=== PATIENT | female | born 1990 | race Caucasian/White ===

== ENCOUNTER 2021-05-06 03:52 | Day surgery (SDC) | payer OTHER, SELFPAY ==
[2021-05-04 15:08] VITALS: BMI 39.6
[2021-05-06] VITALS (11 sets, daily range): BP systolic 109–140; BP diastolic 56–79; PULSE 53–80; RESP 14–16; TEMP 36.4–36.7; O2SAT 96–100
[2021-05-06] MEDS: ACETAMINOPHEN 500 MG TABLET 1000 MG PO (07:00)
--- NOTE | 2021-05-06 07:00 | P.PNAN_ITS ---
Anes - Initial Pre Proc Eval Procedure: Operation Date: 05/06/21 07:30 Proposed Procedures p Diagnostic Laparoscopy, Laparoscopic Right Ovarian Cystectomy, Laparoscopic Hydrotubation of Fallopian Tubes - Conner Corrigan MD Date/Time: 05/06/21 07:00 Surgeon: Conner Corrigan MD Pre Op Diagnosis: endometriosis of pelvis, pelvic pain Patient Data Age: 31 Gender: F Height: 1.73 m Weight: 118.18 kg Allergies Allergy/AdvReac Type Severity Reaction Status Date / Time No Known Allergies Allergy Unverified 05/06/21 06:25 Home Medications Medication Instructions Recorded Confirmed Type multivitamin 1 cap PO DAILY 05/04/21 05/06/21 History Patient hx anesthesia problems: none Family hx anesthesia problems: none [facility] Past Medical History Medical History (Updated 05/06/21 @ 07:00 by Jace Matamoros MD) H/O bronchitis Social History Social History Smoking status: Current every day smoker Tobacco type: cigarettes Additional smoking assessment comments: 3 cigarettes a day x Alcohol intake: current Drinks per week: 3 Alcohol use details: socially Living arrangements: with family Spiritual care concerns: No Anes - Eval Final PreProcedure Day of Procedure 05/06/21 07:00 Patient weight: morbidly obese Heart: regular rate and rhythm Lungs: clear to auscultation Airway: Mallampati scale class II Neurological: alert and oriented Last oral intake: >/= 8 hours ASA classification: III Emergent: no Anesthetic plan: proceed Anesthesia type and monitoring: general ETT and standard monitoring Informed Consent: The patient's anesthetic plan and its attendant risks and benefits were discussed with the patient/family/POA. Questions were solicited and answers provided to the satisfaction of the patient/family/POA.
[2021-05-06] MEDS: LACTATED RINGERS 1,000 ML 30 ML IV CONT ×2 (07:02→09:58)
[2021-05-06] MEDS: KETOROLAC 15 MG/ML VIAL (*BKC) IV PUSH (07:06)
--- NOTE | 2021-05-06 07:12 | WPDHPUPDATE1 ---
History and Physical Update Update Date/Time: 05/06/21 07:12 History and Physical has been reviewed, including an updated exam of the patient. There are NO changes in the patient's condition. Risks, benefits, and alternatives have been discussed and questions answered. Patient agrees to proceed with procedure.
[2021-05-06] MEDS: METHYLENE BLUE 0.5% INJ 10 ML AMPULE 5 ML IRRIGATION (08:05)
--- NOTE | 2021-05-06 10:02 | W.PM.PROC2 ---
Procedure Note - Detailed Date of Procedure 05/06/21 Pre-op Diagnosis endometriosis of pelvis, pelvic pain Post-op Diagnosis same ( Pelvic adhesions, endometrioma x2, patent fallopian tubes) Procedure Performed Diagnostic laparoscopy , adhesiolysis - 1.5 hours, bilateral ovarian cystectomy, hydro perturbation , resection and fulguration of endometriosis. Surgeon Conner Corrigan MD Anesthesia general Indications Pelvic pain Findings Patent fallopian tubes, adhesions in the posterior cul-de-sac with a nearly obliterated posterior cul-de-sac. The adhesions posterior cul-de-sac incorporated the ovaries, the rectum, the posterior cervix and uterus. Endometrial implants on the bladder, endometrial implants in the posterior cul-de-sac. Endometrioma x2 of the right ovary. Description of Procedure The patient was taken to the operating room. She was prepped and draped in the dorsal lithotomy position after induction general anesthesia. A 5 mm incision was made with a scalpel on the abdominal skin in the left upper quadrant of the abdomen. A 5 mm trocar was inserted into the intra-abdominal cavity under direct visualization the scope. In the same fashion a 5 mm left lower quadrant trocar was inserted and a 5 mm infraumbilical trocar was inserted. right ovarian cystectomy was performed. There were 2 moderate size endometrium was a right ovary that were drained, irrigated, and the cyst capsules were removed as possible. The cut bleeding surfaces were cauterized gently. Adhesiolysis was then performed for 1.5 hours. The ovaries were from the posterior cul-de-sac and the uterus. The ovaries were from the pelvic sidewalls. This was all done with sharp and blunt dissection cautery. The rectum was from the posterior uterus and the posterior cervix. The rectovaginal septum was . The rectum was later checked with blue methylene blue dye. The rectum was fiwith methylene blue dye and there was no perforations noted as examining it in real-time in the posterior cul-de-sac. ureteral lysis was performed bilaterally. Area of endometriosis on the posterior uterus and hemipelvis sees were cauterized. An area of endometriosis on the anterior cul-de-sac bladder surface was resected . This was done with cautery and sharp dissection.. There were also areas that were cauterized over the bladder peritoneum. The pelvis was irrigated. Hematoma was placed in the deep posterior cul-de-sac in the rectovaginal space. Interceed was placed in the bilateral hemipelvis ease. The pneumoperitoneum was reduced. The trocars were removed. Skin was closed with subcuticular 4 micro. The patient's incisions were covered with Dermabond. She was taken recovery room in stable condition. Sponge lap and needle counts were correct x2. Estimated Blood Loss 100 Complications No immediate complications Condition stable Disposition same day
[2021-05-06] MEDS: fentaNYL CITRATE INJ (*CRX) 100 MCG/2 ML VIAL 25 MCG IV PUSH ×3 (10:09→10:31)
--- NOTE | 2021-05-06 11:04 | SUR.PHASEII ---
PATIENT ABLE TO WALK BACK FROM BATHROOM WITH MINIMAL ASSISTANCE. AWAKE, ORIENTED X 3 THEN FELL ASLEEP ONCE IN RECLINER. CONCERNED THAT HER LIPS ARE PALE. CAP REFILL TO NAILBEDS < 2 SEC. RADIAL PULSES STRONG. BP STABLE. WILL CONTINUE TO MONITOR.
--- NOTE | 2021-05-06 11:50 | SUR.PHASEII ---
PATIENT STILL DROWSY BUT MORE ALERT. COLOR PINK TO LIPS AND NAILBEDS. VSS.
[2021-05-06] MEDS: ONDANSETRON INJ 4 MG/2 ML VIAL IV PUSH (12:06)
[2021-05-06] MEDS: oxyCODONE HCL (*CRX) 5 MG TAB IR PO (12:35)
== END 2021-05-06 12:40 | disposition home or self-care (01) ==
PROVIDERS: PCP Internal Medicine; Visit Provider Obstetrics & Gynecology
PROC: (CPT 49320; principal; 2021-05-06 07:30)
DX: N80.3 Endometriosis of pelvic peritoneum (principal); N80.1 Endometriosis of ovary; R10.2 Pelvic and perineal pain; K66.0 Peritoneal adhesions (postprocedural) (postinfection); N83.11 Corpus luteum cyst of right ovary; N83.01 Follicular cyst of right ovary; F17.210 Nicotine dependence, cigarettes, uncomplicated; E66.01 Morbid (severe) obesity due to excess calories; Z68.41 Body mass index [BMI] 40.0-44.9, adult
CPT/HCPCS: 58662; 88305; A9270; J1100; J1170; J1885; J2250; J2405; J2704; J2710; J3010; J7030; J7120; Q9968

== ENCOUNTER 2024-05-08 17:27 | Emergency (ER) | payer OTHER, SELFPAY | END 2024-05-08 18:29 | disposition home or self-care (01) | PROVIDERS: Emergency Provider Nurse Practitioner Family | DX: L03.116 Cellulitis of left lower limb (principal) | CPT/HCPCS: 99213; G0463 ==